=== PATIENT | female | born 1965 | race Caucasian/White ===

== ENCOUNTER 2017-07-27 07:38 | Emergency (ER) | payer OTHER ==
[~2017-07-27] VITALS: Ht 160 cm; Wt 58.1 kg
--- NOTE | 2017-07-27 07:51 | NUR ---
pt is in room #2a. dr grimaldo evaluated the pt.
[2017-07-27] MEDS ORDERED: HYDROMORPHONE 1 MG/1 ML DISP.SYRIN IM ONE (08:00)
[2017-07-27] MEDS ORDERED: PROMETHAZINE HCL 25 MG/1 ML VIAL IM ONE (08:00)
--- NOTE | 2017-07-27 08:06 | NUR ---
pt was d/c to home. d/c instructions given to the pt.
[2017-07-27] MEDS ORDERED: HYDROMORPHONE 2 MG/1 ML DISP.SYRIN ONE (08:15)
[2017-07-27] MEDS ORDERED: PROMETHAZINE HCL 25 MG/1 ML VIAL ONE (08:15)
[2017-07-27 08:16] VITALS: BP 132/81
== END 2017-07-27 08:19 | disposition home or self-care (01) ==
LOC: ER 07:38
DX: G89.29 Other chronic pain (principal); M54.9 Dorsalgia, unspecified; I10 Essential (primary) hypertension
CPT/HCPCS: 96372 ×2; 99284; A4663; J1170; J2550

== ENCOUNTER 2017-08-26 14:37 | Emergency (ER) | payer OTHER ==
[~2017-08-26] VITALS: Ht 160 cm; Wt 58.1 kg
[2017-08-26] MEDS ORDERED: TRAMADOL HCL 50 MG TABLET PO ONE (15:34)
[2017-08-26] MEDS ORDERED: KETOROLAC TROMETHAMINE 60 MG INJ IM ONE ×2 (15:45→15:54)
[2017-08-26] MEDS ORDERED: TRAMADOL HCL 50 MG TABLET ONE (15:53)
--- NOTE | 2017-08-26 16:48 | NUR ---
MEDS ADMINISTERED EARLIER, MSE COMPLETED. PT D/C'D HOME, ACI/RX X2 GIVEN. PT AMBULATED W/O DIFF/TOOK ALL BELONGINGS.
[2017-08-26 16:50] VITALS: BP 136/84
== END 2017-08-26 16:51 | disposition home or self-care (01) ==
LOC: ER 14:40
DX: S39.012A Strain of muscle, fascia and tendon of lower back, initial encounter (principal); I10 Essential (primary) hypertension; W01.0XXA Fall on same level from slipping, tripping and stumbling without subsequent striking against object, initial encounter; Y92.89 Other specified places as the place of occurrence of the external cause; Y93.89 Activity, other specified; Y99.8 Other external cause status
CPT/HCPCS: 96372; 99283; A4663; J1885

== ENCOUNTER 2018-04-09 17:43 | Inpatient (IN) | payer BC, MEDICAID, OTHER ==
[~2018-04-09] VITALS: Ht 157.5 cm; Wt 55.5 kg
--- NOTE | 2018-04-09 18:24 | NUR ---
[employer] AT BEDSIDE.
[2018-04-09 18:34] LABS: BASOPHILS # (AUTO) 0.1 K/uL (0.0-8.0); EOSINOPHILS % (AUTO) 0.3 % (0.0-7.0); HEMATOCRIT 43.1 % (31.2-41.9); HEMOGLOBIN 14.7 g/dL (10.9-14.3); LYMPHOCYTES # (AUTO) 2.1 K/uL (20.0-40.0); LYMPHOCYTES % (AUTO) 15.2 % (20.5-51.5); MEAN CORPUSCULAR HEMOGLOBIN 33.7 uug (24.7-32.8); MEAN CORPUSCULAR HGB CONC 34 g/dL (32.3-35.6); MONOCYTES # (AUTO) 0.8 K/uL (2.0-10.0); MONOCYTES % (AUTO) 5.8 % (0.0-11.0); NEUTROPHILS # (AUTO) 10.8 K/uL (1.8-8.9); NEUTROPHILS % (AUTO) 77.7 % (38.5-71.5); PLATELET COUNT (AUTO) 273 K/uL (179-408); RED BLOOD CELL COUNT(AUTO) 4.35 MIL/uL (3.63-4.92); WHITE BLOOD COUNT (AUTO) 13.9 K/uL (3.8-11.8)
[2018-04-09 18:40] LABS: CARBON DIOXIDE 21 mmol/L (21-32); CHLORIDE 105 mmol/L (98-107); GLUCOSE 99 mg/dL (74-106); UREA NITROGEN, BLOOD 55 mg/dL (7-18)
[2018-04-09 18:45] LABS: ALANINE AMINOTRANSFERASE 25 U/L (14-59); ALKALINE PHOSPHATASE 42 U/L (50-136); ASPARTATE AMINOTRANSFERASE 16 U/L (15-37); BILIRUBIN,DIRECT 0.1 mg/dL (0.0-0.2); BILIRUBIN,TOTAL 0.5 mg/dL (0.2-1.0)
[2018-04-09 18:46] LABS: ACETAMINOPHEN < 2.0 ug/mL (10-30)
[2018-04-09 18:49] LABS: ETHANOL < 3 MG/DL (0-0)
[2018-04-09] MEDS ORDERED: IV NORMAL SALINE 1000 ML BAG IV ONE (19:00)
[2018-04-09] MEDS ORDERED: TDAP DIPH,PERTUSS,TET VAC/PF 0.5 ML DISP.SYRIN IM ONE ×2 (19:00→19:03)
[2018-04-09] MEDS ORDERED: ACETAMINOPHEN ES 500 MG TABLET PO ONE (19:00)
[2018-04-09] MEDS ORDERED: ACETAMINOPHEN ES 500 MG TABLET ONE (19:03)
--- NOTE | 2018-04-09 19:04 | NUR ---
Dr Villafana is talking to patient re: IV line insertion, IV fluids, tetanus & admission. SBAR to ELENA Evangelista
[2018-04-09 19:29] LABS: CREATINE KINASE, TOTAL 452 U/L (26-192)
--- NOTE | 2018-04-09 19:47 | NUR ---
Dr. Villafana speaking with Dr. Al ([facility]).
[2018-04-09] MEDS ORDERED: IBUP-1957 PO (19:48)
[2018-04-09] MEDS ORDERED: GABA-534 PO (19:48)
[2018-04-09] MEDS ORDERED: ARNICA MONTANA (19:48)
[2018-04-09] MEDS ORDERED: PROP10TA10 PO (19:48)
[2018-04-09] MEDS ORDERED: CYCL10TA9 PO (19:48)
[2018-04-09] MEDS ORDERED: TRAM50TA2 PO (19:48)
[2018-04-09] MEDS ORDERED: HYDR-548 PO (19:48)
[2018-04-09] MEDS ORDERED: ESCI20TA PO (19:48)
[2018-04-09] MEDS ORDERED: LORAZEPAM 2 MG/1 ML VIAL IV ONE (20:00)
[2018-04-09] MEDS ORDERED: LORAZEPAM 2 MG/1 ML VIAL ONE (20:01)
--- NOTE | 2018-04-09 20:01 | NUR ---
Alida contact info: (Call for any concerns) [phone] Gogo Estrada
--- NOTE | 2018-04-09 20:02 | NUR ---
Pt provided urine sample, sent to lab.
[2018-04-09 20:09] LABS: *BILIRUBIN,URIN 1+ (NEGATIVE); *BLOOD, URINE 1+ (NEGATIVE); *KETONES,URINE 1+ (NEGATIVE); *PROTEIN,URINE 2+ (NEGATIVE); *UROBILINOGEN,URINE 0.2 E.U./dl (NORMAL); LEUKOCYTE ESTERASE ,URINE NEGATIVE (NEGATIVE); NITRITE, URINE NEGATIVE (NEGATIVE); PH,URINE 5.5 (5.0-8.0); UGLUCOSE NEGATIVE (NEGATIVE)
--- NOTE | 2018-04-09 20:15 | NUR ---
Report given to Lila PARKER Tele.
[2018-04-09 20:25] LABS: *AMPHETAMINE, URINE NEGATIVE (NEGATIVE); *BARBITURATE, URINE NEGATIVE (NEGATIVE); *CANNABINOID, URINE NEGATIVE (NEGATIVE); *COCCAINE, URINE NEGATIVE (NEGATIVE); *OPIATE, URINE NEGATIVE (NEGATIVE); *PHENCYCLIDINE SCREEN,URINE NEGATIVE (NEGATIVE)
[2018-04-09] MEDS ORDERED: OLANZAPINE 10 MG VIAL IM ONE ×2 (20:25→20:30)
[2018-04-09 20:35] LABS: *CLARITY,URINE HAZY (CLEAR); *COLOR,URINE DARK YELLOW (YELLOW)
[2018-04-09 20:37] LABS: BACTERIA,URINE MODERATE /HPF (NONE SEEN); MUCUS,URINE MODERATE /LPF (0-FEW); SQUAMOUS EPITHELIAL CELL,UR MODERATE /HPF (NONE SEEN)
[2018-04-09] MEDS ORDERED: IV NORMAL SALINE 500 ML BAG IV ONE (20:45)
[2018-04-09] MEDS ORDERED: ZOLPIDEM 5 MG TABLET PO PRN (20:45)
[2018-04-09] MEDS ORDERED: ONDANSETRON 4 MG/2 ML VIAL IV PRN (20:45)
[2018-04-09] MEDS ORDERED: ACETAMINOPHEN 325 MG TABLET PO PRN (20:45)
[2018-04-09] MEDS ORDERED: LORAZEPAM 2 MG/1 ML VIAL IV PRN (20:45)
[2018-04-09] MEDS ORDERED: Z GUARD REMEDY PASTE 57 GM TUBE TOP PRN (20:45)
[2018-04-09] MEDS ORDERED: HYDROCODONE/APAP 5-325MG TABLET PO PRN (20:45)
--- NOTE | 2018-04-09 20:45 | NUR ---
NORMAL SALINE BOLUS WAS GIVEN ALREADY IN ER. CHARGE NURSE AWARE. PT STABLE. WILL CONTINUE TO MONITOR.
--- NOTE | 2018-04-09 21:00 | NUR ---
RECEIVED PT FROM ER VIA WHEELCHAIR. PT IS AWAKE, ALERT, AND ORIENTEDX1. PT ADMITTED TO TELEMETRY.DX:RENAL FAILURE. ADMISSION PROCESS AND CARE PLAN INITIATED. [facility] ASSESSMENT DONE. SAFETY AND COMFORT PROVIDED. CALL LIGHT WITHIN REACH. WILL CONTINUE TO MONITOR.
[2018-04-09 21:03] VITALS: BP 94/71
[2018-04-09] MEDS: IV NS 1000 ML 1,000 ML IV SCH (21:38)
--- NOTE | 2018-04-09 23:07 | NUR ---
Report given to Jennyfer PARKER SHERIE.
[2018-04-10] VITALS: BP 121/70
[2018-04-10 04:00] VITALS: BP 131/55
[2018-04-10] MEDS: IV NS 1000 ML 1,000 ML IV SCH ×2 (05:44→17:59)
--- NOTE | 2018-04-10 06:05 | NUR ---
PT SLEPT THROUGHOUT THE SHIFT. PT SHOWS NO SIGNS OF DISTRESS. PT IV INTACT AND PATENT. PT COOPERATIVE WITH CARE. CALL LIGHT WITHIN REACH. BED ALARM ON AND IN LOW POSITION.WILL ENDORSE ACCORDINGLY TO INCOMING NURSE.
[2018-04-10] MEDS: PANTOPRAZOLE SODIUM 40 MG TABLET.DR PO SCH (06:10)
[2018-04-10 06:55] LABS: BASOPHILS # (AUTO) 0.1 K/uL (0.0-8.0); BASOPHILS % (AUTO) 0.7 % (0.0-2.0); EOSINOPHILS # (AUTO) 0.1 K/uL (0.0-0.7); EOSINOPHILS % (AUTO) 0.4 % (0.0-7.0); HEMATOCRIT 41.4 % (31.2-41.9); HEMOGLOBIN 13.8 g/dL (10.9-14.3); LYMPHOCYTES # (AUTO) 2.8 K/uL (20.0-40.0); LYMPHOCYTES % (AUTO) 19.5 % (20.5-51.5); MEAN CORPUSCULAR HEMOGLOBIN 33.4 uug (24.7-32.8); MEAN CORPUSCULAR HGB CONC 33 g/dL (32.3-35.6); MEAN CORPUSCULAR VOLUME 100.1 fL (75.5-95.3); MONOCYTES # (AUTO) 1.2 K/uL (2.0-10.0); MONOCYTES % (AUTO) 8.2 % (0.0-11.0); NEUTROPHILS # (AUTO) 10.3 K/uL (1.8-8.9); NEUTROPHILS % (AUTO) 71.2 % (38.5-71.5); PLATELET COUNT (AUTO) 247 K/uL (179-408); RED BLOOD CELL COUNT(AUTO) 4.14 MIL/uL (3.63-4.92); WHITE BLOOD COUNT (AUTO) 14.4 K/uL (3.8-11.8)
[2018-04-10 07:14] LABS: BILIRUBIN,DIRECT 0.1 mg/dL (0.0-0.2); BILIRUBIN,TOTAL 0.5 mg/dL (0.2-1.0); CREATININE 3.6 mg/dL (0.6-1.3); MAGNESIUM 1.9 mg/dL (1.8-2.4); POTASSIUM 3.3 mmol/L (3.5-5.1)
[2018-04-10 08:15] VITALS: BP_SYST 128; BP_SYST 131; BP_DIAS 55; BP_DIAS 61
[2018-04-10] MEDS: IBUPROFEN 800 MG TABLET PO SCH ×2 (09:31→17:59)
[2018-04-10] MEDS: PROPRANOLOL HCL 10 MG TABLET PO SCH (09:31)
[2018-04-10] MEDS: FOLIC ACID 1 MG TABLET PO SCH (09:31)
[2018-04-10] MEDS: NICOTINE 14 MG/24HR PATCH TD SCH (09:31)
[2018-04-10] MEDS: GABAPENTIN 300 MG CAPSULE PO SCH ×2 (09:31→17:59)
--- NOTE | 2018-04-10 10:05 | NUR ---
informed dymitiri of abnormal labs potassium 3.3. will replace with 20 of k. and will start rocephin for elevated wbc. and okay to start cardiac diet.
[2018-04-10] MEDS ORDERED: POTASSIUM CHLORIDE 20 MEQ TAB.PRT.SR PO ONE (10:15)
[2018-04-10 11:15] VITALS: BP 126/67
[2018-04-10] MEDS: CEFTRIAXONE 1 G in IV DEXTROSE 5% 50 ML IV SCH (11:19)
--- NOTE | 2018-04-10 13:00 | NUR ---
DOCTOR MONACO IN THE UNIT TO SEE PATIENT FOR NEW CONSULT
[2018-04-10 16:00] VITALS: BP 133/70
[2018-04-10 18:31] LABS: *BILIRUBIN,URIN NEGATIVE (NEGATIVE); *BLOOD, URINE 1+ (NEGATIVE); *COLOR,URINE YELLOW (YELLOW); *KETONES,URINE NEGATIVE (NEGATIVE); *PROTEIN,URINE NEGATIVE (NEGATIVE); *UROBILINOGEN,URINE 0.2 E.U./dl (NORMAL); LEUKOCYTE ESTERASE ,URINE NEGATIVE (NEGATIVE); NITRITE, URINE NEGATIVE (NEGATIVE); PH,URINE 5.5 (5.0-8.0); UGLUCOSE NEGATIVE (NEGATIVE)
[2018-04-10 18:45] LABS: *CREATININE,URINE 63.1 mg/dL (30-125); *URINE TOTAL PROTEIN RANDOM 18.4 mg/dL (<150/24HR)
[2018-04-10] MEDS ORDERED: DOCUSATE SODIUM 100 MG CAPSULE PO PRN (19:15)
[2018-04-10 19:23] LABS: *CLARITY,URINE HAZY (CLEAR)
[2018-04-10 19:25] LABS: BACTERIA,URINE MODERATE /HPF (NONE SEEN); SQUAMOUS EPITHELIAL CELL,UR MODERATE /HPF (NONE SEEN); WBC,URINE 0-3 /HPF (0-3)
[2018-04-10 19:30] VITALS: BP 123/68
--- NOTE | 2018-04-10 20:00 | NUR ---
RECEIVED PATIENT ASLEEP IN BED. NO S/S OF PAIN OR DISCOMFORT. NO RESP. DISTRESS NOTED. IVF INFUSING WELL ORDERED. CALL LIGHT IN REACH. ALL NEEDS ATTENDED. WILL CONTINUE TO MONITOR.
--- NOTE | 2018-04-10 22:45 | NUR ---
PATIENT AWAKE IN BED. C/O PAIN, GENERALIZED. PATIENT GIVEN ULTRAM 50MG PO PRN FOR PAIN. DRESSINGS NOTED TO LEFT ELBOW AND RIGHT KNEE, SKIN CARE PROVIDED AND NEW STERILE DRY DRESSINGS APPLIED. IV HEPLOCK NOTED TO LEFT AC #20 GAUGE, NOTED TO BE DISLODGED AND LEAKING. PATIENT REFUSED FOR NEW IV INSERTION. INFORMED PATIENT ON IMPORTANCE OF IV HEPLOCK WITH ORDERED IVF AND IV ANTIBIOTICS ORDERED FOR AM. PATIENT VERBALIZED UNDERSTANDING, BUT STILL REFUSED. CALLED OUT TO ADVISORY APPLICATION DEVELOPER AQUATIC PHYSIOTHERAPIST FOR FURTHER ORDERS.
[2018-04-10] MEDS: TRAMADOL HCL 50 MG TABLET PO PRN (22:46)
[2018-04-10] MEDS: MIRALAX 17 GM POWD.PACK PO PRN (22:46)
[2018-04-11] MEDS: IV NS 1000 ML 1,000 ML IV SCH (02:45)
[2018-04-11 03:40] VITALS: BP 135/74
--- NOTE | 2018-04-11 06:22 | NUR ---
PATIENT ASLEEP IN BED. SLEPT WELL THROUGHOUT THE NIGHT. CALL LIGHT IN REACH. ALL NEEDS ATTENDED. WILL CONTINUE TO MONITOR.
[2018-04-11 06:26] LABS: BASOPHILS # (AUTO) 0.1 K/uL (0.0-8.0); BASOPHILS % (AUTO) 0.5 % (0.0-2.0); BILIRUBIN,TOTAL 0.3 mg/dL (0.2-1.0); CREATININE 2.1 mg/dL (0.6-1.3); EOSINOPHILS # (AUTO) 0.1 K/uL (0.0-0.7); EOSINOPHILS % (AUTO) 1.2 % (0.0-7.0); HEMATOCRIT 42.3 % (31.2-41.9); HEMOGLOBIN 14.1 g/dL (10.9-14.3); LYMPHOCYTES # (AUTO) 2.8 K/uL (20.0-40.0); LYMPHOCYTES % (AUTO) 23.3 % (20.5-51.5); MAGNESIUM 1.7 mg/dL (1.8-2.4); MEAN CORPUSCULAR HEMOGLOBIN 33.9 uug (24.7-32.8); MEAN CORPUSCULAR HGB CONC 33 g/dL (32.3-35.6); MEAN CORPUSCULAR VOLUME 101.5 fL (75.5-95.3); MONOCYTES % (AUTO) 8.5 % (0.0-11.0); NEUTROPHILS # (AUTO) 8.1 K/uL (1.8-8.9); NEUTROPHILS % (AUTO) 66.5 % (38.5-71.5); PHOSPHOROUS 3.1 mg/dL (2.5-4.9); PLATELET COUNT (AUTO) 237 K/uL (179-408); POTASSIUM 3.2 mmol/L (3.5-5.1); RED BLOOD CELL COUNT(AUTO) 4.17 MIL/uL (3.63-4.92); TOTAL PROTEIN, SERUM 6.6 g/dL (6.4-8.2); WHITE BLOOD COUNT (AUTO) 12.1 K/uL (3.8-11.8)
[2018-04-11] MEDS: PANTOPRAZOLE SODIUM 40 MG TABLET.DR PO SCH (06:51)
[2018-04-11 08:00] VITALS: BP 139/76
--- NOTE | 2018-04-11 08:00 | NUR ---
PATIENT ASKING IF SHE CAN BE DISCHARGED TODAY. INFORMED HER THAT THE CONSERVATION OR HERITAGE ARCHITECT IS AWARE AND THAT WE ARE AWAITING RENAL CLEARANCE FOR DISCHARGE
[2018-04-11] MEDS: FOLIC ACID 1 MG TABLET PO SCH (08:16)
[2018-04-11] MEDS: IBUPROFEN 800 MG TABLET PO SCH (08:16)
[2018-04-11] MEDS: GABAPENTIN 300 MG CAPSULE PO SCH (08:16)
[2018-04-11] MEDS: NICOTINE 14 MG/24HR PATCH TD SCH (08:21)
[2018-04-11] MEDS: TRAMADOL HCL 50 MG TABLET PO PRN (08:21)
[2018-04-11 08:22] VITALS: BP 139/76
[2018-04-11] MEDS: PROPRANOLOL HCL 10 MG TABLET PO SCH (08:22)
[2018-04-11] MEDS: MIRALAX 17 GM POWD.PACK PO PRN (08:25)
[2018-04-11] MEDS: CEFTRIAXONE 1 G in IV DEXTROSE 5% 50 ML IV SCH (09:00)
--- NOTE | 2018-04-11 09:00 | NUR ---
ROCEPHIN NOT GIVEN. PATIENT HAS NO IV ACCESS. BORING MACHINE OPERATOR HORIZONTAL AWARE WILL CHANGE ROUTE.
--- NOTE | 2018-04-11 09:00 | NUR ---
DOCTOR DELANO IN THE UNIT STATED THAT SHE CAN BE OKAY FOR DISCHARGE BUT WILL NEED TO FOLLOW UP WITH A RENAL SPECIALIST OUTPATIENT. INFORMED AND UPDATED STRAP MACHINE OPERATOR AUTOMATIC.
--- NOTE | 2018-04-11 10:30 | NUR ---
PATIENT IS WALKING AROUND THE [place] OF THE UNIT. PATIENT IS CHANGED AND CONTINUES TO ASK WHEN SHE WILL DISCHARGED TO NURSING STAFF. REPEATEDLY INFORMED HER THAT THE PHYSICIANS ARE AWARE AND THAT THERE IS DISCHARGE PLANNING BUT NOT DIRECT ORDERS YET AND SHE WILL BE INFORMED ONCE DISCHARGE ORDERS ARE IN PLACE.
[2018-04-11] MEDS ORDERED: CEPH500T PO (12:29)
[2018-04-11] MEDS ORDERED: ACET-2154 PO (12:33)
[2018-04-11] MEDS ORDERED: ACET-73 PO (12:34)
[2018-04-11] MEDS ORDERED: POTASSIUM CHLORIDE 10 MEQ TAB.PRT.SR PO ONE (13:45)
[2018-04-11] MEDS ORDERED: MAGNESIUM SULFATE/D5W 100 ML IV SCH (13:45)
--- NOTE | 2018-04-11 14:00 | NUR ---
PATIENT DISCHARGED. ALL DISCHARGE FORMS SIGNED AND REVIEWED WITH PRESCRIPTIONS. PATIENT WHEELED DOWN TO LOBBY WITH FREIGHT WEIGHER. NO IV ACCESS TO BE DISCONTINUED.
== END 2018-04-11 14:25 | disposition home or self-care (01) | DRG 469 ==
LOC: ER 17:44 → TELE 20:16 → MED 04-10 12:15
PROVIDERS: ADMIT Nurse Practitioner Acute Care; ATTEND Nurse Practitioner Acute Care
DX: N17.0 Acute kidney failure with tubular necrosis (principal); G92 Toxic encephalopathy; M62.82 Rhabdomyolysis; E87.0 Hyperosmolality and hypernatremia; E88.81 Metabolic syndrome and other insulin resistance; T50.905A Adverse effect of unspecified drugs, medicaments and biological substances, initial encounter; Y92.019 Unspecified place in single-family (private) house as the place of occurrence of the external cause; Y92.410 Unspecified street and highway as the place of occurrence of the external cause; S50.311A Abrasion of right elbow, initial encounter; D64.9 Anemia, unspecified; S80.212A Abrasion, left knee, initial encounter; S50.312A Abrasion of left elbow, initial encounter; S80.211A Abrasion, right knee, initial encounter; V03.90XA Pedestrian on foot injured in collision with car, pick-up truck or van, unspecified whether traffic or nontraffic accident, initial encounter; F19.10 Other psychoactive substance abuse, uncomplicated; N14.0 Analgesic nephropathy; N39.0 Urinary tract infection, site not specified; E87.6 Hypokalemia; E86.0 Dehydration; F17.210 Nicotine dependence, cigarettes, uncomplicated; E53.8 Deficiency of other specified B group vitamins; G89.4 Chronic pain syndrome; F32.9 Major depressive disorder, single episode, unspecified; I10 Essential (primary) hypertension; Z91.14 Patient's other noncompliance with medication regimen; F23 Brief psychotic disorder; Z91.19 Patient's noncompliance with other medical treatment and regimen
CPT/HCPCS: 36415; 70030-TC; 70450; 71045; 73080; 80307; 83735; 84100; 84156; 84300; 84443; 85025; 85730; 90715; 93005; A4663; A9150; G0480; G0480-TC; J0696; J2060; J2358; J7030; J7060